=== PATIENT | female | born 1970 | race Caucasian/White ===

== ENCOUNTER 2020-08-15 15:22 | Outpatient (CLI) | payer OTHER, SELFPAY ==
--- NOTE | ~2020-08-15 | MM_ITS ---
EXAMINATION: MM screening [facility] BI w kayode HISTORY: Screening mammogram TECHNIQUE: Craniocaudal and mediolateral oblique 3-D tomosynthesis images were obtained and synthetic 2-D images were generated. CAD analysis was submitted and interpreted. COMPARISON: 06/28/2019, 11/09/2017, 09/23/2016 BREAST PARENCHYMAL COMPOSITION: There are scattered areas of fibroglandular density. FINDINGS: A stable intramammary lymph node is present in the upper outer quadrant of the right breast . There is no evidence of suspicious mass, calcification, or architectural distortion to suggest eri gnancy in either breast. There has been no suspicious interval change. IMPRESSION: 1. No mammographic evidence of malignancy. 2. Recommend routine screening mammography in one year. BI-RADS Category 2: Benign finding(s). Reviewed, dictated and finalized at location A.
== END 2020-08-15 15:23 | disposition home or self-care (01) ==
PROVIDERS: PCP Family Medicine; Visit Provider Family Medicine
DX: Z12.31 Encounter for screening mammogram for malignant neoplasm of breast (principal)
CPT/HCPCS: 77063; 77067

== ENCOUNTER 2020-11-27 08:50 | Outpatient (CLI) | payer BC, SELFPAY ==
--- NOTE | 2020-11-27 11:00 | NEURO_ITS ---
Impression: # Complains of numbness of feet, left more than right. # Left lateral plantar nerve latency prolonged compared to right lateral plantar nerve. # Left peroneal latency prolonged as well. # Needle/EMG exam abnormal in left EDB. 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 Nerve Conduction Studies Anti Sensory Summary Table Stim Site NR Peak (ms) P-T Amp (?V) Site1 Site2 Delta-P (ms) Dist (cm) José Miguel (m/s) Left Sup Fibular Anti Sensory (Ant Lat Mall) 14 cm 3.6 17.2 14 cm Ant Lat Mall 3.6 16.0 44 Right Sup Fibular Anti Sensory (Ant Lat Mall) 14 cm 3.3 8.1 14 cm Ant Lat Mall 3.3 16.0 48 Left Sural Anti Sensory (Lat Mall) Calf 3.8 20.3 Calf Lat Mall 3.8 16.0 42 Right Sural Anti Sensory (Lat Mall) Calf 3.8 15.7 Calf Lat Mall 3.8 16.0 42 Motor Summary Table Stim Site NR Onset (ms) O-P Amp (mV) Site1 Site2 Delta-0 (ms) Dist (cm) José Miguel (m/s) Left Lateral Plantar Motor (ADM) Med Mall 5.9 10.6 Right Lateral Plantar Motor (ADM) Med Mall 4.6 0.8 Left Peroneal Motor (Vastus Med) Ankle 7.0 2.0 Popit Ankle 8.2 39.0 48 Popit 15.2 1.7 Right Peroneal Motor (Vastus Med) Ankle 5.2 2.7 Popit Ankle 8.5 39.0 46 Popit 13.7 1.8 Left Tibial Motor Run #1 (Abd Donnelly Brev) Ankle 5.0 7.2 Knee Ankle 9.2 43.0 47 Knee 14.2 6.4 Right Tibial Motor (Abd Donnelly Brev) Ankle 5.1 7.5 Knee Ankle 9.0 43.0 48 Knee 14.1 4.8 F Wave Studies NR F-Lat (ms) L-R F-Lat (ms) Left Peroneal (Mrkrs) (EDB) 60.45 6.57 Right Peroneal (Mrkrs) (EDB) 53.88 6.57 Left Tibial (Mrkrs) (Abd Hallucis) 53.02 0.35 Right Tibial (Mrkrs) (Abd Hallucis) 53.37 0.35 EMG Side Muscle Nerve Root Ins Act Fibs Amp Dur Recrt Comment Right AntTibialis Dp Br Fibular L4-5 Nml Nml Nml Nml Nml Right Gastroc Tibial S1-2 Nml Nml Nml Nml Nml Right Fibularis Long Sup Br Fibular L5-S1 Nml Nml Nml Nml Nml Right Flex Dig Long Tibial L5-S2 Nml Nml Nml Nml Nml Right Ext Dig Brev Dp Br Fibular L5, S1 Nml Nml Nml Nml Nml Left AntTibialis Dp Br Fibular L4-5 Nml Nml Nml Nml Nml Left Gastroc Tibial S1-2 Nml Nml Nml Nml Nml Left Fibularis Long Sup Br Fibular L5-S1 Nml Nml Nml Nml Nml Left Flex Dig Long Tibial L5-S2 Nml Nml Nml Nml Nml Left Ext Dig Brev Dp Br Fibular L5, S1 Nml Nml Incr >12ms Reduced MTDD
== END 2020-11-27 08:51 | disposition home or self-care (01) ==
PROVIDERS: PCP Family Medicine; Visit Provider Family Medicine
DX: R20.2 Paresthesia of skin (principal)
CPT/HCPCS: 95886; 95910

== ENCOUNTER 2022-02-27 10:25 | Outpatient (CLI) | payer OTHER, SELFPAY ==
--- NOTE | ~2022-02-27 | NM_ITS ---
EXAMINATION: NM shira stress w perfusion DATE: 02/27/2022 12:28 INDICATION: Dyspnea TECHNIQUE: Rest images were obtained following intravenous administration of 8.5 mCi Tc99m tetrofosmi n (Myoview). The patient was infused intravenously with Lexiscan (Regadenoson). Then, 28.8 mCi Tc99m tetrofosmin (Myoview) was administered intravenously, and stress images were obtained. Data was recon structed into short axis and horizontal and vertical long axis SPECT images. Gated SPECT images were also obtained. COMPARISON: None. FINDINGS: There is no definite reversible or fixed perfusion abnormality to suggest ischemia or infar ction. There is normal left ventricular chamber size, wall motion and ejection fraction. Left ventr icular ejection fraction measures >70%. IMPRESSION: 1. Normal myocardial perfusion at rest and during stress. 2. Left ventricular ejection fraction measuring >70%. Reviewed, dictated and finalized at location A.
--- NOTE | 2022-02-27 10:31 | EST_ITS ---
Patient Info Name: Dilcia Hendrickson Age: 51 years : 1970 Gender: Female Ht: 68 in Wt: 160 lbs BSA: 1.87 m2 HR: 62 bpm BP: 137 / 95 mmHg Heart Rhythm: Sinus Rhythm Exam Date: 02/27/2022 11:38 AM Exam Location: [facility] Stress Patient Status: Outpatient Admit Date: 02/27/2022 Staff Ordering Physician: Grady Millan DO Attending Provider: Grady Millan DO Exercise Technologist: Juliette Yip CT Exercise Physician: Grady Millan DO Exam Type: CA stress shira w NM Study Info Indications Z01.810 - Encounter for preprocedural cardiovascular examination A regadenoson stress test was performed. Summary 1. 1. Negative lexiscan stress test for ischemic ST changes by ECG criteria. 2. 2. Stable hemodynamics throughout the test. 3. 3. Nuclear scan to follow and will be reported separately. Please correlate with it. 4. 4. Patient informed of the above results. Protocol: Lexiscan Stress ECG Details Stage: REST Duration (min): 1 min : 17 sec HR (bpm): 63 SBP (mmHg): 137 DBP (mmHg): 95 Stage: REST Duration (min): 1 min : 47 sec HR (bpm): 67 SBP (mmHg): 137 DBP (mmHg): 95 Stage: REST Duration (min): 2 min : 8 sec HR (bpm): 64 SBP (mmHg): 137 DBP (mmHg): 95 Stage: REST Duration (min): 8 min : 59 sec HR (bpm): 67 SBP (mmHg): 137 DBP (mmHg): 95 Stage: STAGE 1 Duration (min): 0 min : 59 sec HR (bpm): 112 SBP (mmHg): 143 DBP (mmHg): 95 Stage: RECOVERY Duration (min): 1 min : 0 sec HR (bpm): 118 SBP (mmHg): 124 DBP (mmHg): 84 Stage: RECOVERY Duration (min): 2 min : 0 sec HR (bpm): 113 SBP (mmHg): 124 DBP (mmHg): 84 Stage: RECOVERY Duration (min): 2 min : 53 sec HR (bpm): 107 SBP (mmHg): 126 DBP (mmHg): 82 Rest HR: 67 bpm Peak HR: 123 bpm Rest Sys BP: 137 mmHg Peak Sys BP: 143 mmHg Max Pred HR: 168 bpm % Max Pred HR: 73 % Target HR: 143 bpm Max RPP: 17,589 bpm*mmHg Termination Reason: Completed protocol Cardiac Symptoms: Shortness of breath Total Time: 1 min : 0 sec Rest Moon BP: 95 mmHg Peak Moon BP: 95 mmHg Total Dose: 0.4 mg Resting ECG Sinus rhythm, IRBBB. Stress ECG No ST changes. Arrhythmias None. Report Signatures
== END 2022-02-27 10:26 | disposition home or self-care (01) ==
PROVIDERS: PCP Nurse Practitioner; Visit Provider Internal Medicine Cardiovascular Disease
DX: R06.00 Dyspnea, unspecified (principal)
CPT/HCPCS: 78452; 93017; A9502; J2785